=== PATIENT | male | born 1985 | race Caucasian/White ===

== ENCOUNTER 2021-06-25 10:19 | Emergency (ER) | payer OTHER, SELFPAY ==
[2021-06-25 10:20] VITALS: BP 127/80; PULSE 105; RESP 18; TEMP 37.1; O2SAT 99; BMI 31.6
--- NOTE | 2021-06-25 10:34 | EX.ED.UPPERE ---
HPI History of Present Illness Chief Complaint: Wound Narrative Narrative: 35-year-old male presents with infection of the right middle finger. Patient states that 3 days ago he was started on Keflex for this and at that time it was a little bit red and a little bit swollen. He denies any trauma to the finger. He states that he works with his hands and he typically has skin breaks. He does not bite his nails. Over the course of this weekend his finger has been swelling and now he has a small abscess on the medial aspect of the middle finger just proximal to the fingernail. Patient has no systemic signs or symptoms. PFSH PFSH Medical History no medical history Home Medications famotidine 20 mg PO BID #28 tablet 03/26/15 [Rx Last Taken Unknown] ondansetron 4 mg PO Q8H PRN PRN #10 tab 03/26/15 [Rx Last Taken Unknown] oxycodone-acetaminophen 1 - 2 tab PO Q4H PRN PRN #12 tab 03/26/15 [Rx Last Taken Unknown] clindamycin HCl 450 mg PO TID 7 Days #63 cap 06/25/21 [Rx Last Taken Unknown] hydrocodone-acetaminophen 1 tab PO Q6H PRN 3 Days #10 tab 06/25/21 [Rx Last Taken Unknown] Allergy/AdvReac Type Severity Reaction Status Date / Time sulfamethoxazole Allergy Unknown Verified 06/25/21 10:21 [From Bactrim] trimethoprim [From Bactrim] Allergy Unknown Verified 06/25/21 10:21 Surgical History History of hernia repair Social History Smoking Status: Never smoker ROS ROS ED Constitutional Constitutional ED: Denies fever(s) or sweats Eyes Eyes: Denies blurry vision or diplopia ENT ENT ED: Denies rhinorrhea or sore throat Cardiovascular Cardiovascular: Denies chest pain or palpitations Respiratory/Chest Respiratory/Chest: Denies cough or dyspnea Gastrointestinal Gastrointestinal: Denies abdominal pain, nausea or vomiting Genitourinary Genitourinary ED: Denies dysuria or hematuria Musculoskeletal Musculoskeletal: Denies myalgias or neck pain Integumentary Reports abscess Neurologic Neurologic: Denies headache(s) or weakness Psychiatric Psychiatric: Denies anxiety or depression EXAM Physical Exam Const Vital Signs: 06/25/21 10:20 Temperature 98.7 F Temperature Source Temporal Pulse Rate 105 H Respiratory Rate 18 Blood Pressure 127/80 H Blood Pressure Mean 95 Pulse Ox 99 Oxygen Delivery Method Room Air Positive well nourished General Appearance ED: NAD HEENT Reports moist mucous membranes normocephalic and atraumatic Resp normal respiratory effort Effort and Inspection: able to speak in complete sentences and symmetric chest movement Cardio regular rate and regular rhythm Extremity Extremity Narrative: Small 1 cm abscess on the dorsal aspect of the medial middle finger on the right hand. This is proximal to the nail. No [place]ie[place] signs. No sign of felon. There is a small area of surrounding cellulitis proximally. No lymphangitic streaking. Neuro oriented x3 and CN's II-XII intact bilaterally Sensorium / Orientation: alert Psych mental status grossly normal Skin Skin Narrative: As documented above MDM MDM MDM Narrative Medical decision making narrative: 35-year-old male presenting with abscess on the right distal middle finger. Patient's wound was cleaned with Shur-Clens. Using sterile precautions patient's wound was anesthetized with 3 cc of lidocaine without epinephrine. Good anesthesia is achieved. 1 linear incision is made across the fullest portion of the abscess. The area is very small and was deloculated to the best of my ability. It was irrigated with sterile saline and the patient was left to soak in sterile saline for about 15 minutes. The wound was dressed with bacitracin. Patient tolerated procedure well. Since Keflex has not been working and he is allergic to Bactrim I will start him on clindamycin. He is counseled to soak his hand at least 3-4 times a day in hot soapy water. He is given follow-up with Dr. Potts. Impression: 1. Abscess right middle finger 2. Cellulitis right middle finger Discharge Plan Triage Chief Complaint: Wound ED Provider: Jim Ha Dx/Rx/DC Orders Instructions: ED Abscess Incision And Drainage Prescriptions: New clindamycin HCl 150 mg capsule 450 mg PO TID 7 Days Qty: 63 RF: 0 hydrocodone-acetaminophen 5-325 mg tablet 1 tab PO Q6H PRN (Reason: pain) 3 Days Qty: 10 RF: 0 No Action oxycodone-acetaminophen 1 TABLET tablet 1 - 2 tab PO Q4H PRN PRN (Reason: Pain) Qty: 12 RF: 0 famotidine 20 MG tablet 20 mg PO BID Qty: 28 RF: 0 ondansetron 4 MG tablet 4 mg PO Q8H PRN PRN (Reason: Nausea) Qty: 10 RF: 0 Referrals: Patti ALDRIDGE [Other] Juancho Potts MD [STAFF PHYSICIAN] - As soon as possible Disposition Disposition: Home, Self Care
[2021-06-25] MEDS: Clindamycin HCl 150 MG Capsule 450 MG PO (11:48)
[2021-06-25] MEDS: Lidocaine 1% (20 ml mdv) 20 ML Vial 30 ML INFILT (11:49)
[2021-06-25 11:50] VITALS: PULSE 81; RESP 16; O2SAT 98
== END 2021-06-25 11:51 | disposition home or self-care (01) ==
PROVIDERS: Emergency Provider Student in an Organized Health Care Education/Training Program; Visit Provider Student in an Organized Health Care Education/Training Program
DX: L03.011 Cellulitis of right finger (principal); L02.413 Cutaneous abscess of right upper limb
CPT/HCPCS: 10060; 99283